=== PATIENT | male | born 1945 | race Caucasian/White ===

== ENCOUNTER 2019-07-01 19:08 | Inpatient (IN) | payer OTHER ==
[2019-07-01] VITALS (12 sets, daily range): BP systolic 81–165; BP diastolic 47–109; BMI 32.9
[~2019-07-01] VITALS: Ht 172.7 cm; Wt 100.6 kg
[~2019-07-01 19:08] MED LIST: ALBUTEROL SULF8.5 GM; BAYER ASPIRIN325 MG PO; COMBIVENT RESPIM4 GM INH; COREG6.25 MG; FUROSEMIDE40 MG; GABAPENTIN300 MG PO; GLUCOPHAGE500 MG PO; K-DUR20 MEQ PO; LISINOPRIL40 MG PO; PLAVIX75 MG PO; SYMBICORT 16010.2 GM INH; ZOCOR80 MG PO; ZYLOPRIM300 MG PO
[2019-07-01 19:24] LABS: BASOPHILS 0.2 % (0-2); EOSINOPHILS 1.2 % (0-7); HEMATOCRIT 41.3 % (42.0-54.0); HEMOGLOBIN 12.6 g/dL (13.5-17.5); IMMATURE GRANULOCYTES 1.2 % (0-5); LYMPHOCYTES 13.4 % (15-50); MCH 30.7 pg (26.0-34.0); MCHC 30.5 g/dL (31.0-37.0); MCV 100.5 fL (80.0-100.0); MEAN PLATELET VOLUME 10.7 fL (7.4-10.4); MONOCYTES 2.5 % (2-11); NEUTROPHILS 81.5 % (40-80); RBC 4.11 10x6/uL (4.20-6.10); RDW 14.3 % (11.5-14.5); WBC 4.8 10x3/uL (4.8-10.8)
[2019-07-01 19:27] LABS: PLATELET COUNT 200 10x3/uL (130-400)
[2019-07-01 19:32] LABS: INR 1.23 (0.85-1.17); PROTIME 15.4 SECONDS (11.6-15.0)
[2019-07-01 19:35] LABS: D-DIMER-QUANTITATIVE 2.63 ug/mLFEU (0.20-0.54)
[2019-07-01 19:56] LABS: ALBUMIN 3.4 g/dL (3.4-5.0); BILIRUBIN - TOTAL 0.51 mg/dL (0.2-1.3); CALCIUM 8.7 mg/dL (8.5-10.1); CARBON DIOXIDE 20.4 mmol/L (21.0-32.0); CREATININE - SERUM 2.4 mg/dL (0.6-1.3); MAGNESIUM - SERUM 2.3 mg/dL (1.8-2.4); PROTEIN - SERUM 8.3 g/dL (6.4-8.2); THYROID STIMULATING HORMONE 3.15 uIU/mL (0.36-3.74)
[2019-07-01 19:57] LABS: ANION GAP 20.4 mmol/L (8-16); TROPONIN-I 0.182 ng/mL (0.000-0.060)
[2019-07-01 19:58] LABS: POTASSIUM - SERUM 6.8 mmol/L (3.5-5.1)
[2019-07-01 21:02] LABS: BACTERIA MODERATE /hpf (NEGATIVE); BILIRUBIN NEGATIVE (NEGATIVE); GLUCOSE NEGATIVE (NEGATIVE); KETONE NEGATIVE (NEGATIVE); NITRITE NEGATIVE (NEGATIVE); UROBILINOGEN NORMAL (NORMAL); WHITE CELLS - URINE 0-5 /hpf (NEGATIVE)
[2019-07-01 21:07] LABS: UDS - AMPHET NEGATIVE QUAL (NEGATIVE); UDS - BARB NEGATIVE QUAL (NEGATIVE); UDS - BENZO NEGATIVE QUAL (NEGATIVE); UDS - COCAINE NEGATIVE QUAL (NEGATIVE); UDS - OPIATE NEGATIVE QUAL (NEGATIVE); UDS - PCP NEGATIVE QUAL (NEGATIVE); UDS - THC NEGATIVE QUAL (NEGATIVE)
--- NOTE | 2019-07-01 21:30 | NUR ---
PT STATES HE FINISHED HIS LAST DOSE OF PLAVIX THIS MORNING.
--- NOTE | 2019-07-01 21:37 | NUR ---
IV INFUSION TIMES: LEVOPHED STARTED AT 1913 CONTINUED TO ICU AT 7MCG/MIN. ZOSYN 4.5G STARTED AT 1957 FINISHED INFUSING AT 2027. DOBUTREX STARTED AT 2032 CONTINUED TO ICU AT 2.5MCG/KG/MIN. VACOMYCIN 1G STARTED AT 2042 CONTINUED TO ICU AT 1G/HR. CALCIUM GLUCONATE 1G STARTED AT 2111 CONTINUED TO ICU AT 1G/HR.
[2019-07-01] MEDS ORDERED: ALBUTEROL SULF8.5 GM INH (23:11)
[2019-07-01 23:31] LABS: % SATURATION 20 % (15-55); IRON 59 ug/dl (35-150); TOTAL IRON BIND CAPACITY 294 ug/dl (260-445); UNSAT IRON BIND CAPACITY 235 ug/dl (150-375)
[2019-07-01 23:59] LABS: TROPONIN-I 27.905 ng/mL (0.000-0.060)
[2019-07-02] VITALS (24 sets, daily range): BP systolic 97–158; BP diastolic 51–106; Ht 172.7 cm; Wt 100.6 kg
[2019-07-02 03:54] LABS: BASOPHILS 0 % (0-2); EOSINOPHILS 0.2 % (0-7); HEMATOCRIT 37.3 % (42.0-54.0); HEMOGLOBIN 11.3 g/dL (13.5-17.5); IMMATURE GRANULOCYTES 0.4 % (0-5); LYMPHOCYTES 10.5 % (15-50); MCHC 30.3 g/dL (31.0-37.0); MCV 98.9 fL (80.0-100.0); MEAN PLATELET VOLUME 10.6 fL (7.4-10.4); MONOCYTES 10.9 % (2-11); RBC 3.77 10x6/uL (4.20-6.10); RDW 14.3 % (11.5-14.5); WBC 5.5 10x3/uL (4.8-10.8)
[2019-07-02 04:05] LABS: PLATELET COUNT 155 10x3/uL (130-400)
[2019-07-02 04:13] LABS: ALBUMIN 3.3 g/dL (3.4-5.0); BILIRUBIN - TOTAL 0.64 mg/dL (0.2-1.3); CALCIUM 8.6 mg/dL (8.5-10.1); CREATININE - SERUM 2.1 mg/dL (0.6-1.3); PHOSPHOROUS 4.8 mg/dL (2.5-4.9); PROTEIN - SERUM 7.7 g/dL (6.4-8.2)
--- NOTE | 2019-07-02 05:18 | NUR ---
215407/01/19-PATIENT ARRIVED FROM ER VIA STRECTHER. LEVOPHED AT 7MCG AND DUBUTAMINE AT 2.5. ONCE TRANSFERED TO ICU BED PATIENT DESAT AND OXYGEN WAS INCREASED TO 7L HIGH FLOW NC. ONCE PT WAS SETTLED O2 SAT REMAINED AT 98-100%, TOOK OXYGEN DOWN TO 4 L NC. MODERATE LIQUID BM NOTED. A/O X 4. 2206- PT VOMIT X 1. STARTED TO DECREASE LEVOPHED. 2225- DR. AMAYA HERE AT BEDSIDE. NEW ORDERS FOR IVF. LARGE LIQUID BM NOTED. COMPLETED CHG BATH AND LINEN CHANGE COMPLETED 2307-LEVOPHED OFF 2347- DUBUTAMINE OFF 0100-LARGE BM NOTED. STOOL SAMPLED SENT OFF. 2606-[id number] COMPLETED. 0500- EYES CLOSED, EASILY ARROUSED. DENIES ANY NEEDS.
--- NOTE | 2019-07-02 07:30 | NUR ---
REPORT RECEIVED. PT ALERT AND ORIENTED. ON O2 AT 4L. PT HAS A LONG. TO HAVE A CT THIS MORNING AND TO HAVE AN ECHO DONE. PT HAS IVS TO LEFT HAND AND RIGHT WRIST. NS INFUSING AT 75ML/HR. PT GETS BLOOD SUGARS CHECKED Q4H. VSS. WILL CONTINUE TO MONITOR.
--- NOTE | 2019-07-02 08:45 | NUR ---
ECHO BEING DONE.
--- NOTE | 2019-07-02 09:46 | NUR ---
SPOKE WITH DR AMAYA REGARDING PT'S KIDNEY FUNCTION AND CONTRAST FOR THE CT. HE SAID TO GO ON WITH ORAL CONTRAST, NOT TO WORRY ABOUT IV CONTRAST TODAY. CALLED ESHA IN [place] AND UPDATED.
--- NOTE | 2019-07-02 10:10 | NUR ---
PT BEING TAKEN TO CT SCAN AT THIS TIME.
--- NOTE | 2019-07-02 12:18 | NUR ---
CLEAR LIQUID DIET LUNCH GIVEN TO PT.
--- NOTE | 2019-07-02 15:00 | NUR ---
PT RESTING QUIETLY. VSS. WILL CONTINUE TO MONITOR.
--- NOTE | 2019-07-02 17:47 | NUR ---
PT ATE 100% OF CLEAR LIQUID DIET DINNER. VSS. NO COMPLAINTS OR NEEDS AT THIS TIME. WILL CONTINUE TO MONITOR.
--- NOTE | 2019-07-02 19:00 | NUR ---
PT SITTING UP IN BED. HE IS ALERT AND ORIENTED X 3. HE THOUGHT HE WAS AT A HOSPITAL IN [place]. INFORMED HIM HE WAS AT [facility]. HE DENIES PAIN OR NEEDS AT THIS TIME. BED IS LOW AND CALL LIGHT IS WITHIN REACH.
--- NOTE | 2019-07-02 20:00 | NUR ---
PT ASKING FOR A TYLENOL. HE IS HAVING PAIN 3/10 TO THIS LEFT SIDE. HE DESCRIBES IT A SHARP INTERMITTENT PAIN. VITALS STABLE. CALL LIGHT IS WITHIN REACH.
--- NOTE | 2019-07-02 21:00 | NUR ---
PT RESTING WITH EYES CLOSED. RESPIRATIONS EVEN AND UNLABORED. VS STABLE. CALL LIGHT WITHIN REACH.
--- NOTE | 2019-07-02 21:19 | MORECARE ---
CASE MANAGEMENT DISCHARGE SUMMARY PATIENT: PAOLA MCKEON UNIT: [id number] ADM DATE: 07/01/19 AGE: 74 : 44 SEX: M ROOM/BED: D.2305 AUTHOR: EDGARDO AVILA PHYSICIAN: REFERRING PHYSICIAN: REEMA AMAYA MD DATE OF SERVICE: 07/02/19 Discharge Plan Patient Name: PAOLA MCKEON Facility: [facility]:[place] : 1945 Planned Disposition: Home Anticipated Discharge Date: Discharge Date: Expected LOS: Initial Reviewer: [email or web address] Initial Review Date: 07/01/2019 Generated: 07/02/19 10:18 pm Comments DCP- Discharge Planning Updated by [email or web address]: Joan Camacho on 07/02/19 8:[address] Patient Name: PAOLA MCKEON Admission Status: ER Accout number: [id number] Admission Date: 07-01-2019 : 1945 Admission Diagnosis: Attending: REEMA AMAYA Current LOS: 1 Anticipated DC Date: Planned Disposition: Primary Insurance: [employer] Discharge Planning Comments: CM met with patient at bedside after explaining CM role and obtaining verbal consent. Patient lives at home with his where he is independent with his care and plans to return there upon discharge. Patient feels this would be a safe discharge. CM discussed availability / needs of home health and medical equipment. Patient states that he has a walker, nebulizer and home 02. Patient denies any discharge needs at this time. CM asked patient [facility]. Patient stated that he would like to stay here and [facility]. Patient states he will have his family drive him home upon discharge. CM will continue to follow and assist as needed with discharge planning / needs. Creel Clerk: Joan Camacho Patient Name: PAOLA MCKEON Page [phone] at 2119 All edits/amendments must be made on the electronic document DICTATION DATE: 07/02/192117 SUPERVISOR YARD: ANIKA 07/02/192117 RPT#: [id number] DC DATE: STATUS: ADM IN [facility] [address] [place] [address] END OF REPORT
--- NOTE | 2019-07-02 21:26 | MORECARE ---
CASE MANAGEMENT DISCHARGE SUMMARY PATIENT: PAOLA MCKEON UNIT: [id number] ADM DATE: 07/01/19 AGE: 74 : 44 SEX: M ROOM/BED: D.2305 AUTHOR: MARGARITA,DOC PHYSICIAN: REFERRING PHYSICIAN: REEMA AMAYA MD DATE OF SERVICE: 07/02/19 Discharge Plan Patient Name: PAOLA MCKEON Facility: [facility]:[place] : 1945 Planned Disposition: Home Anticipated Discharge Date: Discharge Date: Expected LOS: Initial Reviewer: [email or web address] Initial Review Date: 07/01/2019 Generated: 07/02/19 10:25 pm Comments DCP- Discharge Planning Updated by [email or web address]: Joan Camacho on 07/02/19 8:[address] Patient Name: PAOLA MCKEON Admission Status: ER Accout number: [id number] Admission Date: 07-01-2019 : 1945 Admission Diagnosis: Attending: REEMA AMAYA Current LOS: 1 Anticipated DC Date: Planned Disposition: Primary Insurance: [employer] Discharge Planning Comments: CM met with patient at bedside after explaining CM role and obtaining verbal consent. Patient lives at home with his where he is independent with his care and plans to return there upon discharge. Patient feels this would be a safe discharge. CM discussed availability / needs of home health and medical equipment. Patient states that he has a walker, nebulizer and home 02. Patient denies any discharge needs at this time. CM asked patient if he wants to transfer to [place] if bed available. Patient stated that he would like to stay here and [facility] pay. Patient states he will have his family drive him home upon discharge. CM will continue to follow and assist as needed with discharge planning / needs. Food Chemist: Joan Camacho DCPIA - Discharge Planning Initial Assessment Updated by [email or web address]: Joan Camacho on 07/02/19 9:19 pm * Is the patient Alert and Oriented? Yes * How many steps to enter\exit or inside your home? * PCP Mei Cheung - walk-in clinic * [facility] * Preadmission Environment Home with Family * ADLs Independent * Other Equipment WALKER, HOME AND PORTABLE 02, NEBULIZER * List name and contact numbers for known caregivers / representatives who currently or will assist patient after discharge: - [phone] DAI / MAYCO MCKEON -SON & dnl [phone], * Verbal permission to speak to the caregivers and representatives has been obtained from the patient. Yes * Community resources currently utilized None * Additional services required to return to the preadmission environment? No * Can the patient safely return to the preadmission environment? Yes * Has this patient been hospitalized within the prior 30 days at any hospital? No Last DP export: 07/02/19 8:19 pm Patient Name: PAOLA MCKEON Page [phone] at 2126 All edits/amendments must be made on the electronic document DICTATION DATE: 07/02/192124 JOB TRAINING SPECIALIST: ANIKA 07/02/192124 RPT#: [id number] DC DATE: STATUS: ADM IN [facility] [address] [place] [address] END OF REPORT
--- NOTE | 2019-07-02 22:00 | NUR ---
PT SITTING UP IN BED, WATCHING TV. HE REPORTS THAT THE TYLENOL HELPED AND THAT HE IS NOT IN PAIN AT THIS TIME. GOT HIM SOME FRESH WATER AND PERFORMED LONG CARE. HE DENIES FURTHER NEEDS. BED IS LOW AND CALL LIGHT WITHIN REACH.
--- NOTE | 2019-07-02 23:58 | NUR ---
PT AWAKE, ALERT AND ORIENTED. HE REPORTS PAIN IS AT A TOLERABLE LEVEL. VSS. BED LOW AND CALL LIGHT WITHIN REACH.
[2019-07-03] VITALS (11 sets, daily range): BP systolic 126–160; BP diastolic 65–106
[2019-07-03 03:55] LABS: BASOPHILS 0.5 % (0-2); EOSINOPHILS 1.6 % (0-7); HEMATOCRIT 36.7 % (42.0-54.0); HEMOGLOBIN 11.3 g/dL (13.5-17.5); IMMATURE GRANULOCYTES 0.3 % (0-5); LYMPHOCYTES 20.9 % (15-50); MCH 30.1 pg (26.0-34.0); MCHC 30.8 g/dL (31.0-37.0); MCV 97.9 fL (80.0-100.0); MONOCYTES 9.3 % (2-11); NEUTROPHILS 67.4 % (40-80); PLATELET COUNT 135 10x3/uL (130-400); RBC 3.75 10x6/uL (4.20-6.10); RDW 14.3 % (11.5-14.5)
--- NOTE | 2019-07-03 03:58 | NUR ---
PT C/O FEELING HOT, ANXIOUS AND NOT ABLE TO SLEEP. GOT HIM A FAN SET UP ON HIS BEDSIDE TABLE. PT VISIBLY DIAPHORETIC AND EVERYTIME I WALK BY HIS ROOM HE IS LOOKING INTO THE GUTIERREZ. HE STATES HE IS ANXIOUS AND CANT SLEEP. ATIVAN GIVEN. TEMP IS WNL 98.4 ORALLY. BED LOW AND CALL LIGHT WITHIN REACH. HE DENIES FURTHER NEEDS AT THIS TIME.
[2019-07-03 04:07] LABS: WBC 3.9 10x3/uL (4.8-10.8)
[2019-07-03 04:26] LABS: BILIRUBIN - TOTAL 0.58 mg/dL (0.2-1.3); CALCIUM 8.7 mg/dL (8.5-10.1); CARBON DIOXIDE 25.2 mmol/L (21.0-32.0); CREATININE - SERUM 1.6 mg/dL (0.6-1.3); PROTEIN - SERUM 7.4 g/dL (6.4-8.2)
[2019-07-03 04:29] LABS: ANION GAP 10.5 mmol/L (8-16); PHOSPHOROUS 3.1 mg/dL (2.5-4.9); POTASSIUM - SERUM 4.7 mmol/L (3.5-5.1)
--- NOTE | 2019-07-03 07:20 | NUR ---
REPORT RECEIVED. PT ALERT. UNABLE TO SLEEP DURING THE NIGHT. IS ON O2 AT 3L. BLOOD SUGAR Q4H. PT HAS IV TO RIGHT WRIST AND LEFT HAND. HE HAS A LONG. ON A CLEAR LIQUID DIET.
--- NOTE | 2019-07-03 08:30 | NUR ---
FAMILY CALLED AND UPDATED. PT EATING BREAKFAST. MEDICATIONS GIVEN. PT REPOSITIONED. NO OTHER NEEDS AT THIS TIME.
--- NOTE | 2019-07-03 10:24 | NUR ---
DR AMAYA ROUNDED AND STATED PT CAN TRANSFER OUT OF THE UNIT.
--- NOTE | 2019-07-03 12:32 | NUR ---
PT IS VERY CONFUSED. ALERT TO SELF AND PLACE.
--- NOTE | 2019-07-03 14:52 | NUR ---
REPORT CALLED TO DEBORAH ON MED 2. PT JUST HAD BM TO BSC. CLEANED UP. ASSISTED BACK TO BED. WILL TRANSFER VIA BED.
[2019-07-04] VITALS (9 sets, daily range): BP systolic 132–178; BP diastolic 55–141
[2019-07-04 06:37] LABS: BASOPHILS 0.1 % (0-2); EOSINOPHILS 0.4 % (0-7); HEMATOCRIT 41.8 % (42.0-54.0); IMMATURE GRANULOCYTES 0.3 % (0-5); LYMPHOCYTES 12.4 % (15-50); MCH 30.2 pg (26.0-34.0); MCHC 31.1 g/dL (31.0-37.0); MEAN PLATELET VOLUME 10.5 fL (7.4-10.4); MONOCYTES 10.9 % (2-11); NEUTROPHILS 75.9 % (40-80); RBC 4.31 10x6/uL (4.20-6.10); RDW 14.2 % (11.5-14.5)
[2019-07-04 06:43] LABS: PLATELET COUNT 167 10x3/uL (130-400); WBC 6.9 10x3/uL (4.8-10.8)
[2019-07-04 06:51] LABS: ALBUMIN 3.3 g/dL (3.4-5.0); ANION GAP 14.8 mmol/L (8-16); BILIRUBIN - TOTAL 0.87 mg/dL (0.2-1.3); CALCIUM 9.2 mg/dL (8.5-10.1); CARBON DIOXIDE 22.3 mmol/L (21.0-32.0); CREATININE - SERUM 1.3 mg/dL (0.6-1.3); PHOSPHOROUS 2.6 mg/dL (2.5-4.9); POTASSIUM - SERUM 4.1 mmol/L (3.5-5.1); PROTEIN - SERUM 8.1 g/dL (6.4-8.2)
--- NOTE | 2019-07-04 12:33 | NUR ---
Nutrition Follow-up: NPO for MIKAEL today. Pt confused. Wt: 221.4# (07/03); 217# (07/01) Last BM: 07/02 Labs noted: Glu 135, Alb 3.3 Meds noted: Protonix, NS @ 75, vitamin B12, electrolyte protocol -Rec resume diet following procedure when medically feasible. -Monitor wt. -RD following.
--- NOTE | 2019-07-04 17:30 | NUR ---
REC'D VIA BED FROM MED 2 PRIMARY NURSE, AWAKE AND AGITATED, PULLING AT LONG, ATTEMPTING TO PULL IT OUT, KICKING AND HITTING AT NURSES, TRANSFERED TO ICU BED, CONTINUEING TO HIT AND ATTEMPTED TO BITE WELL, B/L SOFT WRIST RESTRAINTS PLACE, CONNECTED TO ICU MONITORS, HYPERTENSIVE AT 170'S, NEW ORDER GIVEN PER DR AMAYA, FOR ATIVAN 2MG Q 15 MIN, WIILL CONTINUE TO MONITOR
--- NOTE | 2019-07-04 19:00 | NUR ---
REPORT RECEVEID FROM THE OFF GOING RN. SEE ASSESSEMENT IN THE PTS FLOW SHEET. VSS AT THIS TIME. CALL LIGHT IN REACH. WILLC ONT POC.
--- NOTE | 2019-07-04 19:00 | NUR ---
REPORT RECEVIED FROM THE OFF GOING RN. SEE ASSESSMENT IN THE PTS FLOW SHEET. PT OBTUNDED AND HAS A GARBLED SPEECH. FC NOTED WITH BLOODY URINE NOTED. CALL LIGHT IN REACH. VSS AT THIS TIME. CALL LIGHT IN REACH. WILL CONT POC.
--- NOTE | 2019-07-04 19:47 | NUR ---
SPOKE WITH DR AMAYA, KEEP PT NPO AND ORDER A BANANA BAG.
--- NOTE | 2019-07-04 21:00 | NUR ---
PT PULSES REMAIN UNCHANGED. GROIN SOFT TO PALPATATION. VSS. WILL CONT POC.
--- NOTE | 2019-07-04 21:00 | NUR ---
PT REMIANS CONFUSED AND RESTLESS. VSS. CALL LIGHT IN REACH. WILLC ONT POC.
[2019-07-05] VITALS (23 sets, daily range): BP systolic 112–161; BP diastolic 58–118
--- NOTE | 2019-07-05 00:02 | NUR ---
SPOKE WITH BRENNEN RIOS ABOUT PERSISTANT TACHYCARDIA. 5MG IV LOPRESSOR NOW.
--- NOTE | 2019-07-05 03:00 | NUR ---
REASSESSMENT COMPLETED. SEE FLOW SHEET.
[2019-07-05 03:57] LABS: BASOPHILS 0.3 % (0-2); HEMATOCRIT 40.5 % (42.0-54.0); HEMOGLOBIN 12.6 g/dL (13.5-17.5); IMMATURE GRANULOCYTES 0.3 % (0-5); LYMPHOCYTES 9.1 % (15-50); MCH 30.2 pg (26.0-34.0); MCHC 31.1 g/dL (31.0-37.0); MCV 97.1 fL (80.0-100.0); MEAN PLATELET VOLUME 11.2 fL (7.4-10.4); MONOCYTES 12.6 % (2-11); NEUTROPHILS 76.7 % (40-80); PLATELET COUNT 137 10x3/uL (130-400); RBC 4.17 10x6/uL (4.20-6.10); RDW 14.3 % (11.5-14.5); WBC 6.7 10x3/uL (4.8-10.8)
--- NOTE | 2019-07-05 04:00 | NUR ---
FULL CHD BED BATH GIVEN. LINENS CHANGED. PT TOLERATED WELL. WILL CONT POC.
[2019-07-05 04:19] LABS: ALBUMIN 3.3 g/dL (3.4-5.0); ANION GAP 13.9 mmol/L (8-16); CREATININE - SERUM 1.1 mg/dL (0.6-1.3); PHOSPHOROUS 2.7 mg/dL (2.5-4.9); POTASSIUM - SERUM 3.9 mmol/L (3.5-5.1)
--- NOTE | 2019-07-05 07:15 | NUR ---
REPORT RECIEVED, SHIFT ASSESSMENT COMPLETE, PT IS LETHARGIC LAYING IN BED, ON 5L HFNC WITH 97% O2 SAT. ALL PPP, VSS, CALL LIGHT IN REACH
--- NOTE | 2019-07-05 09:20 | NUR ---
UPDATE GIVEN TO FAMILY OVER PHONE, PASSWORD GIVEN
--- NOTE | 2019-07-05 11:20 | NUR ---
REASSESSMENT COMPLETE, NO CHANGES NOTED, VSS, CALL LIGHT IN REACH
--- NOTE | 2019-07-05 13:15 | NUR ---
UPDATE GIVEN TO FAMILY OVER PHONE, PASSWORD GIVEN
--- NOTE | 2019-07-05 15:00 | NUR ---
REASSESSMENT COMPLETE, NO CHANGES NOTED, WILL CON'T TO MONITOR
--- NOTE | 2019-07-05 17:00 | NUR ---
REPOSITIONED FOR COMFORT,
[2019-07-05 18:08] LABS: OVA + PARASITE EXAM Final report (())
--- NOTE | 2019-07-05 19:00 | NUR ---
REPORT RECEVEID FROM THE OFF GOING RN. SEE MAGALIE IN THE PTS FLOW SHEET. PT LYING IN BED AND COOPERATIVE. PT STILL CONFUSED AND HAS A GARBLED SPEACH. VSS. CALL LIGHT IN REACH. WILLC ONT POC.
--- NOTE | 2019-07-05 19:14 | MORECARE ---
CASE MANAGEMENT DISCHARGE SUMMARY PATIENT: PAOLA MCKEON UNIT: [id number] ADM DATE: 07/01/19 AGE: 74 : 44 SEX: M ROOM/BED: D.2303 AUTHOR: MARGARITADOC PHYSICIAN: REFERRING PHYSICIAN: REEMA AMAYA MD DATE OF SERVICE: 07/05/19 Discharge Plan Patient Name: PAOLA MCKEON Facility: [facility]:[place] : 1945 Planned Disposition: Home Anticipated Discharge Date: Discharge Date: Expected LOS: Initial Reviewer: [email or web address] Initial Review Date: 07/01/2019 Generated: 07/05/19 8:13 pm Comments DCP- Discharge Planning Updated by [email or web address]: Joan Camacho on 07/05/19 6:[address] CM RECIEVED A CALL FROM DK DUMONT FROM [place] [phone]. CM GAVE VERBAL UPDATE ON PATIENT. DK STATED TO CALL IF PATIENT NEEDS ANYTHING. DCP- Discharge Planning Updated by [email or web address]: Joan Camacho on 07/02/19 8:[address] Patient Name: PAOLA MCKEON Admission Status: ER Accout number: [id number] Admission Date: 07-01-2019 : 1945 Admission Diagnosis: Attending: REEMA AMAYA Current LOS: 1 Anticipated DC Date: Planned Disposition: Primary Insurance: [employer] Discharge Planning Comments: CM met with patient at bedside after explaining CM role and obtaining verbal consent. Patient lives at home with his where he is independent with his care and plans to return there upon discharge. Patient feels this would be a safe discharge. CM discussed availability / needs of home health and medical equipment. Patient states that he has a walker, nebulizer and home 02. Patient denies any discharge needs at this time. CM asked patient [facility]. Patient stated that he would like to stay here and [facility] pay. Patient states he will have his family drive him home upon discharge. CM will continue to follow and assist as needed with discharge planning / needs. Terminal Carman: Joan Camacho DCPIA - Discharge Planning Initial Assessment Updated by [email or web address]: Joan Camacho on 07/02/19 9:19 pm * Is the patient Alert and Oriented? Yes * How many steps to enter\exit or inside your home? * PCP Mei Cheung - walk-in clinic * Pharmacy [facility] * Preadmission Environment Home with Family * ADLs Independent * Other Equipment WALKER, HOME AND PORTABLE 02, NEBULIZER * List name and contact numbers for known caregivers / representatives who currently or will assist patient after discharge: - [phone] DAI / MAYCO MCKEON -SON & dnl [phone], * Verbal permission to speak to the caregivers and representatives has been obtained from the patient. Yes * Community resources currently utilized None * Additional services required to return to the preadmission environment? No * Can the patient safely return to the preadmission environment? Yes * Has this patient been hospitalized within the prior 30 days at any hospital? No Last DP export: 07/02/19 8:26 pm Patient Name: PAOLA MCKEON Page [phone] at 1914 All edits/amendments must be made on the electronic document DICTATION DATE: 07/05/191913 SKI PATROL: ANIKA 07/05/191913 RPT#: [id number] DC DATE: STATUS: ADM IN [facility] [address] [place] [address] END OF REPORT
--- NOTE | 2019-07-05 21:24 | NUR ---
FAMILY MEMBER CALLED AND PROVIDED A PASSWORD. UPDATE GIVEN.
--- NOTE | 2019-07-05 21:25 | NUR ---
PT AWAKE AND ALERT BUT STILL CONFUSED. PT REQUESTED WATER. WATER WAS GIVEN AND PT TOLERATED WELL WITH NO DYSPAGIA NOTED. PO MEDS GIVEN WITH NO ISSUES. CALL LIGHT IN REACH. WILL CONT POC.
--- NOTE | 2019-07-05 23:00 | NUR ---
PT RESTING. VSS. CALL LIGHT IN REACH. WILL CONT POC.
[2019-07-06] VITALS (10 sets, daily range): BP systolic 70–164; BP diastolic 46–103
--- NOTE | 2019-07-06 03:00 | NUR ---
REASSEMENT COMPLETED. VSS. CALL LIGHT IN REACH. WILL CONT POC.
[2019-07-06 05:12] LABS: BASOPHILS 0.5 % (0-2); EOSINOPHILS 2.7 % (0-7); HEMATOCRIT 38.2 % (42.0-54.0); HEMOGLOBIN 11.7 g/dL (13.5-17.5); IMMATURE GRANULOCYTES 0.2 % (0-5); LYMPHOCYTES 14.9 % (15-50); MCH 30.1 pg (26.0-34.0); MCHC 30.6 g/dL (31.0-37.0); MCV 98.2 fL (80.0-100.0); MEAN PLATELET VOLUME 10.9 fL (7.4-10.4); MONOCYTES 9.2 % (2-11); NEUTROPHILS 72.5 % (40-80); PLATELET COUNT 156 10x3/uL (130-400); RBC 3.89 10x6/uL (4.20-6.10); RDW 14.6 % (11.5-14.5); WBC 5.5 10x3/uL (4.8-10.8)
[2019-07-06 05:50] LABS: ANION GAP 13.4 mmol/L (8-16); BILIRUBIN - TOTAL 0.92 mg/dL (0.2-1.3); CALCIUM 8.7 mg/dL (8.5-10.1); CREATININE - SERUM 1.2 mg/dL (0.6-1.3); PHOSPHOROUS 2.9 mg/dL (2.5-4.9); POTASSIUM - SERUM 4.4 mmol/L (3.5-5.1); PROTEIN - SERUM 7.4 g/dL (6.4-8.2)
--- NOTE | 2019-07-06 07:06 | NUR ---
REPORT RECIEVED, SHIFT ASSESSMENT COMPLETE, PT IS CONFUSED LYING IN BED, ON 5L HFNC WITH 97% O2 SAT. ALL PPP, VSS, CALL LIGHT IN REACH
--- NOTE | 2019-07-06 08:08 | TEE ---
PATIENT:PAOLA MCKEON MEDICAL RECORD: [id number] LOCATION:[facility] AGE OF PATIENT: 74 ADMISSION DATE: 07/01/19 SEX: M REFERRING PHYSICIAN: INTERPRETING PHYSICIAN: ERIN CURTIS MD TRANSESOPHAGEAL ECHOCARDIOGRAM Date: 07/05/19 MIKAEL CHARGE Y INDICATIONS: R/O VEGETATION ON AORTIC VALVE PREMEDICATIONS: PATIENT'S RESPONSE PROCEDURE DOPPLER MEASUREMENTS: LVIT LA PA 67.0 RA LVOT 59.0 RVOT 44.0 Asc. Ao 152 AV Gradient Peak 9.2 AV Mean 5.3 AV Area 0.9 MV Gradient Peak 6.5 MV Mean 2.4 MV Area INTERPRETATION: Doppler: 2-D: COLOR FLOW DOPPLER NORMAL SALINE STUDY: MISCELLANOUS: DIAGNOSIS: PLAN: Rn Relief Charge:3 Dr. Romero Gamemaster: Angela TODD COMMENTS: DATE OF SERVICE: 07/05/2019 PROCEDURE: Transesophageal Note PROCEDURE: After general sedation via TIVA via anesthesia, a transesophageal Omniplane probe was placed in to esophagus and proximal stomach without difficulty. FINDINGS: LVH is present. LV internal dimension is normal. Wall motion is TRANSESOPHAGEAL ECHOCARDIOGRAM REPORT [id number] PAOLA MCKEON normal. EF is greater than or equal to 55%. The aortic valve is well visualized, this is trileaflet, it is sclerotic; however, there is good valve excursion. No significant aortic insufficiency, no vegetation is noted. Left atrium is normal dimensions. Left atrial appendage is well visualized without difficulty. The mitral valve has mitral annular calcifications, good valve excursion, no more than mild MR by color flow imaging. Right-sided chambers appear grossly normal. Moderate TR, no evidence of vegetation on tricuspid valve. IMPRESSION: No evidence of vegetation, all 4 cardiac valves. Left ventricular function is normal. TRANSINT:[id number] Voice Confirmation ID: [id number] DOCUMENT ID: [id number] CC: [id number] DICTATION DATE: 07/05/19 1332 SENIOR INTERNET SALES CONSULTANT: 07/05/19 2236 ADM IN [facility] [address] [place] [address]
--- NOTE | 2019-07-06 10:12 | NUR ---
Nutrition follow-up: Diet: Regular PO intake continues to be poor 2/2 confusion Labs reviewed Wt: 221# Will continue to provide food choices and honor food preferences. RDN following.
--- NOTE | 2019-07-06 11:30 | NUR ---
PT UPTO CHAIR AT THIS TIME WITH PT, TOLERATED WELL
--- NOTE | 2019-07-06 14:59 | NUR ---
REPORT CALLED TO OVIDIO ON MED SURG, PT TRANSFERRERED VIA WHEELCHAIR
--- NOTE | 2019-07-06 15:14 | NUR ---
PATIENT ADMITTED TO ROOM 2216. SITTING IN CHAIR AT BEDSIDE WITH FEET UP. DENIES NEEDS. CALL URRUTIA AND PERSONAL ITEMS IN REACH. WILL CONTINUE TO MONITOR.
--- NOTE | 2019-07-06 16:22 | NUR ---
OT NOTE: PT COMPLETED UE AROM EX TOLERATED. PT COMPLETED FACE HYGIENE WITH SETUP. [phone] THANK YOU,NOLBERTO KEEN
--- NOTE | 2019-07-06 23:18 | NUR ---
RESTING QUEITLY WITH NO DISTRESS NOTED. RESP UNALBORED.o2@ 5L PER NC ON. LONG PATENT AND DRAINING DARK TEA COLORED URINE.SL TO RFA INTACT WITHOUT REDNESS OR EDEMA NOTED. CL IN REACH
--- NOTE | 2019-07-07 02:51 | NUR ---
I have reviewed this patient and I concur with the Shift Assessment completed by the Licensed Practical Nurse today this shift.
[2019-07-07 04:00] VITALS: BP 143/98
--- NOTE | 2019-07-07 07:44 | NUR ---
PT RESTING IN BED WITH EYES OPEN, ON THE PHONE TRYING TO CALL DIFFERENT NUMBERS, I ASKED WHO HE WAS TRYING TO CALL AND TOLD HIM I WOULD HELP HIM, HE STATES HE IS TRYING TO CALL HIS BUT THE NUMBER HE TELLS ME ISNT A REAL PHONE NUMBER, I INFORM HIM OF THIS AND HE JUST LAUGHS. IV LOCATED TO RIGHT CURRENTLY RUNNING MULTIVIT. ON 5L VIA MI. ETHAN PRESENT PUTTING OUT DARK BARBARA URINE. WILL CONT TO MONITOR.
[2019-07-07 09:19] VITALS: BP 140/79
[2019-07-07 12:43] VITALS: BP 110/66
[2019-07-07 17:54] VITALS: BP 129/68
[2019-07-07 20:00] VITALS: BP 105/68
--- NOTE | 2019-07-07 23:46 | NUR ---
REMAINS CONFUSED. HAS PULLED IV OUT. RESITED TO LFA X 1 ATTEMPT PER MILTON STONEWORK TRACER. LINENS CHANGED AND PATIENT POSITIONED UP IN BED. O2 @ 5 L PER NC ON. NO DISTRESS NOTED. CL IN REACH
[2019-07-08] VITALS: BP 109/72
[2019-07-08 04:00] VITALS: BP 127/87
--- NOTE | 2019-07-08 06:18 | NUR ---
I have reviewed this patient and I concur with the Shift Assessment completed by the Licensed Practical Nurse today this shift.
[2019-07-08 06:45] LABS: HEMATOCRIT 37.5 % (42.0-54.0); HEMOGLOBIN 12.1 g/dL (13.5-17.5); MCHC 32.3 g/dL (31.0-37.0); MCV 96.2 fL (80.0-100.0); MEAN PLATELET VOLUME 11.2 fL (7.4-10.4); NEUTROPHILS 77.8 % (40-80); PLATELET COUNT 171 10x3/uL (130-400); RDW 15.1 % (11.5-14.5); WBC 7.5 10x3/uL (4.8-10.8)
[2019-07-08 06:51] LABS: ANION GAP 14.3 mmol/L (8-16); CALCIUM 8.5 mg/dL (8.5-10.1); CARBON DIOXIDE 22.7 mmol/L (21.0-32.0); CREATININE - SERUM 1.8 mg/dL (0.6-1.3)
[2019-07-08 08:00] VITALS: BP 125/86
--- NOTE | 2019-07-08 08:00 | NUR ---
PATIENT ASLEEP. WAKES UP TO VOICE BUT WONT STAY AWAKE. NIGHT NURSE STATED PATIENT WAS UP ALL NIGHT AND DIDNT SLEEP. GAVE ATIVAN AT 1 AM. IV REMOVED BECAUSE IT WOULDNT FLUSH. CATH TIP INTACT. TRIED TO RESTART. UNSUCCESSFUL AT THIS TIME. WILL TRY AGAIN LATER.
[2019-07-08 12:00] VITALS: BP 127/78
[2019-07-08 16:00] VITALS: BP 127/82
--- NOTE | 2019-07-08 18:50 | NUR ---
PATIENT SITTING UP IN BED EATING DINNER AT THIS TIME. IV INTACT. BSCDS PLACED ON PATIENT. CALL LIGHT WITHIN REACH. BA ON.
[2019-07-08 20:00] VITALS: BP 109/68
--- NOTE | 2019-07-08 20:30 | NUR ---
RESTING QUIELTY WITH NO DISTRESS NOTED. O2@ 5L PER NC ON. RESP UNLABORED. CONTINUES TO HAVE CONFUSION NOTED. IV TO RIEGHT WRIST INTACT WITHOUT REDNESS OR EDEMA NOTED. CL IN REACH
[2019-07-09] VITALS (7 sets, daily range): BP systolic 93–128; BP diastolic 49–85
[2019-07-09 05:02] LABS: HEMATOCRIT 36.4 % (42.0-54.0); HEMOGLOBIN 11.7 g/dL (13.5-17.5); LYMPHOCYTES 14.9 % (15-50); MCHC 32.1 g/dL (31.0-37.0); MCV 96.3 fL (80.0-100.0); MEAN PLATELET VOLUME 10.3 fL (7.4-10.4); NEUTROPHILS 74.7 % (40-80); PLATELET COUNT 183 10x3/uL (130-400); RBC 3.78 10x6/uL (4.20-6.10); RDW 15.1 % (11.5-14.5); WBC 7.6 10x3/uL (4.8-10.8)
[2019-07-09 05:05] LABS: ANION GAP 11.8 mmol/L (8-16); CALCIUM 8.3 mg/dL (8.5-10.1); CARBON DIOXIDE 25.8 mmol/L (21.0-32.0); CREATININE - SERUM 1.6 mg/dL (0.6-1.3); POTASSIUM - SERUM 3.6 mmol/L (3.5-5.1)
--- NOTE | 2019-07-09 12:14 | NUR ---
OT NOTE: PT REMAINS VERY CONFUSED. BED MOB WITH MOD/MAX ASSIST. ABLE TO PERFORM EOB SITTING X APPROX 20 MIN WHILE BED BATH GIVEN. PT ABLE TO WASH FACE AND HANDS WITH FREQ CUES TO STAY ON TASK; MAX ASSIST WITH REMAINDER OF BATHING; MAX ASSIST TO RAPHAEL SOCKS; MOD ASSIST TO RAPHAEL GOWN; MOD ASSIST X 2 FOR SIT TO STAND; ATTEMPTED TO AMB OUTSIDE INTO HALLWAY, HOWEVER, PT BECAME VERY FATIGUED AND ATTEMPTING TO SIT WITHOUT ANYTHING BEHIND HIM. PT WITH SIGNIFICANT DIFFICULTY USING WALKER TO GET BACK TO BED.. REQUIRED MAX ASSIST X 2 TO ASSIST PT TO EOB. MAX ASSIST WITH SIT TO SUPINE; MAX ASSIST TO REPOSITION IN BED. PT ABLE TO REACH FOR CUP AND TAKE APPROX 4 SMALL SIPS. WILL REQUIRE EXT IP REHAB IN ORDER TO RETURN TO PLOF. TOMÁS GONZALEZ, OTR/L [id number]
--- NOTE | 2019-07-09 12:26 | NUR ---
SPORATIC BRUISING NOTED ON ARMS. SKIN INTACT. TURNS SELF IN BED. NO CHRONIC SKIN ISSUES NOTED. WOUND CARE WILL MONITOR NEEDED.
--- NOTE | 2019-07-09 13:46 | NUR ---
Nutrition follow-up: Pt eating breakfast at time of RDN visit; DRAWING OPERATOR feeding pt. PO intake ~25-50% of meals. Some confusion noted. Wt: 221# Diet: Regular RDN following.
--- NOTE | 2019-07-09 15:53 | NUR ---
PATIENT REFUSED TO WEAR TELEMETRY. WONT KEEP ON. IV INTACT AT THIS TIME. CALL LIGHT WITHIN REACH.
--- NOTE | 2019-07-09 16:23 | NUR ---
OT NOTE: PT IS CONFUSED. PT REQUIRED CUES TO LEAVE [address] PT COMPLETED SUPINE TO SIT WITH MAX A. PT COMPLETED SIT TO SUPINE WITH MIN/MOD A FOR LE MANAGEMENT. PT COMPLETED HAIR GROOMING WITH MIN A AT EOB. PT REQUIRED CUES TO MAINTAIN STATIC SITTING BALANCE. [id number] THANK YOU,NOLBERTO KEEN
--- NOTE | 2019-07-09 18:31 | NUR ---
PATIENT IN BED WITH IV INTACT. LONG INTACT. WILL NOT LEAVE STAT LOCK OR TAPE ON TO KEEP CATHETER FROM PULLING. O2 IS ON. PATIENT WAS MORE AWAKE TODAY AND LESS CONFUSED. ABLE TO EAT MORE. NO COMPLAINTS OR SIGNS OF DISTRESS. CALL LIGHT WITHIN REACH.
--- NOTE | 2019-07-10 00:03 | NUR ---
REC'D.CHGE OF SHIFT WALKING ROUNDS IN BED TAKEN ALL CLOTHES OF.REDRESSED. CONFUSED AND DISORIENTED TO PLACE,TIME.SITUATION. BED ARMED.02/3L HIGH FLOW NO RESPIRATORY DIFFICULTY OBSERVED. HOB ELEVATED. WILL CONTINUE TO MONITOR FOR ANY CHGES IN STATUS AND FOLLOW CURRENT PLAN OF CARE
--- NOTE | 2019-07-10 00:04 | NUR ---
I have reviewed this patient and I concur with the Shift Assessment completed by the Licensed Practical Nurse today this shift.
[2019-07-10 04:00] VITALS: BP 100/73
[2019-07-10 04:45] LABS: HEMATOCRIT 40.6 % (42.0-54.0); HEMOGLOBIN 12.8 g/dL (13.5-17.5); LYMPHOCYTES 10.6 % (15-50); MCH 30.4 pg (26.0-34.0); MCHC 31.5 g/dL (31.0-37.0); MCV 96.4 fL (80.0-100.0); MEAN PLATELET VOLUME 11.1 fL (7.4-10.4); PLATELET COUNT 199 10x3/uL (130-400); RBC 4.21 10x6/uL (4.20-6.10); RDW 16.4 % (11.5-14.5); WBC 8.9 10x3/uL (4.8-10.8)
[2019-07-10 05:04] LABS: ANION GAP 13.2 mmol/L (8-16); CALCIUM 8.7 mg/dL (8.5-10.1)
[2019-07-10 05:12] LABS: POTASSIUM - SERUM 4.2 mmol/L (3.5-5.1)
--- NOTE | 2019-07-10 08:48 | NUR ---
TELEMRTY APPLIED SHOWING CAF 96 PER SANDER OPERATOR
[2019-07-10 09:03] VITALS: BP 113/82
[2019-07-10 12:48] VITALS: BP 105/61
--- NOTE | 2019-07-10 14:54 | NUR ---
OT NOTE: PT VERY CONFUSED. VERY LETHARGIC TODAY. ATTEMPTED EOB HOWEVER, PT UNABLE TO STAY AWAKE. REPOSITIONED WITH MAX ASSIST X 2. TOMÁS GONZALEZ,OTR/L [phone]
--- NOTE | 2019-07-10 15:53 | NUR ---
OT NOTE: PT COMPLETED SIDE ROLLING WITH MOD A. PT COMPLETED POSITIONING WITH MIN A. PT COMPLETED ORAL HYGIENE WITH MOD A. [phone] THANK YOU,NOLBERTO KEEN
[2019-07-10 17:43] VITALS: BP 119/69
[2019-07-11] VITALS: BP 127/81
[2019-07-11 04:00] VITALS: BP 125/50
[2019-07-11 05:09] LABS: ANION GAP 12.6 mmol/L (8-16); CALCIUM 8.8 mg/dL (8.5-10.1); CARBON DIOXIDE 26.7 mmol/L (21.0-32.0); CREATININE - SERUM 2.1 mg/dL (0.6-1.3); POTASSIUM - SERUM 4.3 mmol/L (3.5-5.1)
[2019-07-11 05:17] LABS: BASOPHILS 0.3 % (0-2); HEMATOCRIT 39.6 % (42.0-54.0); HEMOGLOBIN 12.3 g/dL (13.5-17.5); IMMATURE GRANULOCYTES 0.4 % (0-5); LYMPHOCYTES 12.3 % (15-50); MCH 30.9 pg (26.0-34.0); MCHC 31.1 g/dL (31.0-37.0); MEAN PLATELET VOLUME 10.9 fL (7.4-10.4); MONOCYTES 6.7 % (2-11); NEUTROPHILS 79.3 % (40-80); PLATELET COUNT 218 10x3/uL (130-400); RBC 3.98 10x6/uL (4.20-6.10); WBC 7.9 10x3/uL (4.8-10.8)
[2019-07-11 05:19] LABS: MCV 99.5 fL (80.0-100.0)
--- NOTE | 2019-07-11 06:54 | NUR ---
I have reviewed this patient and I concur with the Shift Assessment completed by the Licensed Practical Nurse today this shift.
[2019-07-11 09:53] VITALS: BP 120/58
--- NOTE | 2019-07-11 10:40 | NUR ---
PT CONFUSED, REMOVING CPAP, IV INFUSING PER RIGHT WRIST, TAKES PO MEDS CRUSHED IN APPLESAUCE, CONT TO MONITOR SUGARS AND SATS
[2019-07-11 13:21] VITALS: BP 113/59
--- NOTE | 2019-07-11 16:37 | MORECARE ---
CASE MANAGEMENT DISCHARGE SUMMARY PATIENT: PAOLA MCKEON UNIT: [id number] ADM DATE: 07/01/19 AGE: 74 : 43 SEX: M ROOM/BED: D.2216 AUTHOR: MARGARITA,DOC PHYSICIAN: REFERRING PHYSICIAN: REEMA AMAYA MD DATE OF SERVICE: 07/11/19 Discharge Plan Patient Name: PAOLA MCKEON Facility: [facility]:[place] : 1945 Planned Disposition: Home Anticipated Discharge Date: Discharge Date: Expected LOS: Initial Reviewer: [email or web address] Initial Review Date: 07/01/2019 Generated: 07/11/19 5:37 pm Comments DCP- Discharge Planning Updated by [email or web address]: Negra Amanda on 07/11/19 3:[address] SPOKE WITH AND DAUGHTER IN LAW ABOUT CARE AND WISHES ASKED BY DR MARTINEZ THEY STATED THAT HE USES O2 ALL THE TIME @2L. HE IS NOT A CONFUSED PERSON AND IS INDEPENDENT WITH HIS CARE AT HOME. THIS IS NOT HIS NORMAL. I HAVE RECEIVED PERMISSION FROM ADMINISTRATION FOR THE SON AND TO COME SEE THE PATIENT. TO GET A BETTER IDEA OF PLAN OF CARE. CM TO FOLLOW AND ASSIST DCP- Discharge Planning Updated by [id number]: Joan Camacho on 07/05/19 6:[address] CM RECIEVED A CALL FROM DK DUMONT FROM [place] [phone]. CM GAVE VERBAL UPDATE ON PATIENT. DK STATED TO CALL IF PATIENT NEEDS ANYTHING. DCP- Discharge Planning Updated by [id number]: Joan Camacho on 07/02/19 8:[address] Patient Name: PAOLA MCKEON Admission Status: ER Accout number: [id number] Admission Date: 07-01-2019 : 1945 Admission Diagnosis: Attending: REEMA AMAYA Current LOS: 1 Anticipated DC Date: Planned Disposition: Primary Insurance: [employer] Discharge Planning Comments: CM met with patient at bedside after explaining CM role and obtaining verbal consent. Patient lives at home with his where he is independent with his care and plans to return there upon discharge. Patient feels this would be a safe discharge. CM discussed availability / needs of home health and medical equipment. Patient states that he has a walker, nebulizer and home 02. Patient denies any discharge needs at this time. CM asked [facility]. Patient stated that he would [place] [facility] [place]. Patient states he will have his family drive him home upon discharge. CM will continue to follow and assist as needed with discharge planning / needs. News Content Specialist: Joan Furr DCPIA - Discharge Planning Initial Assessment Updated by [email or web address]: Joan Camacho on 07/02/19 9:19 pm * Is the patient Alert and Oriented? Yes * How many steps to enter\exit or inside your home? * PCP Mei Cheung - walk-in clinic * [facility] * Preadmission Environment Home with Family * ADLs Independent * Other Equipment WALKER, HOME AND PORTABLE 02, NEBULIZER * List name and contact numbers for known caregivers / representatives who currently or will assist patient after discharge: - [phone] DAI / MAYCO MCKEON -SON & dnl [phone], * Verbal permission to speak to the caregivers and representatives has been obtained from the patient. Yes * Community resources currently utilized None * Additional services required to return to the preadmission environment? No * Can the patient safely return to the preadmission environment? Yes * Has this patient been hospitalized within the prior 30 days at any hospital? No Last DP export: 07/05/19 6:14 pm Patient Name: PAOLA MCKEON Page [id number] at 1637 All edits/amendments must be made on the electronic document DICTATION DATE: 07/11/19 1637 CARBON FURNACE OPERATOR: ANIKA 07/11/19 1637 RPT#: [id number] DC DATE: STATUS: ADM IN [facility] [address] [place] [address] END OF REPORT
--- NOTE | 2019-07-11 17:30 | NUR ---
FAMILY HERE TO SEE PT," STATE THAT PT WAS GOING ON HOSPICE"
--- NOTE | 2019-07-11 20:28 | NUR ---
1945) REC'D CHGE OF SHIFT WALKING ROUNDS IN BED GOWN 02 OFF.PULLED UP IN BED GOWN 02 REAPPLIED 3L HIGH FLOW.HOB ELEVATED.REMAINS CONFUSED AND DISORIENTED TO TIME PLACE AND SITUATION.2004) RESPIRATORY THERAPY CONCEPCION ENTERED ROOM HAD PULLED 02 OFF FACE DUSKY IN COLOR NON RESPONSIVE.AIRWAY OPENED BAGGING CODE BLUE CALLED.LUKAS WILLIAM[facility] HERE NOTIFIED DR BHATIA.SON CALLED EXPLAINED NO CODE STATUS FULL CODE PROCEDURE IN PROGRESS.ASKED WHATS NEXT? EXPLAINED MORE THAN LIKELY WILL BE INTUBATED AND PUT ON VENT IF FEELS LIKE ITS NECESSARY TO ASSIST WITH BREATHING.STATES X2 DAD DOESN'T WANT HIS CHEST PUMPED ON.TUBE DOWN HIS THROAT OR PUT ON RESPIRATOR. IN ROUTE TO HOSPITAL. PROCESS TANK TENDER RIANNA RODRIGUEZ NOTIFIED OF FAMILIES ONCOMING ARRIVAL.2049)DR BHATIA HERE TALKED WITH FAMILY AND PRONOUNCED PATIENT.
--- NOTE | 2019-07-12 15:17 | MORECARE ---
CASE MANAGEMENT DISCHARGE SUMMARY PATIENT: PAOLA MCKEON UNIT: [id number] ADM DATE: 07/01/19 AGE: 74 : 44 SEX: M ROOM/BED: D.2216 AUTHOR: MARGARITA,DOC PHYSICIAN: REFERRING PHYSICIAN: REEMA AMAYA MD DATE OF SERVICE: 07/12/19 Discharge Plan Patient Name: PAOLA MCKEON Facility: [facility]:[place] : 1945 Planned Disposition: Home Anticipated Discharge Date: Discharge Date: 07/11/2019 Expected LOS: 0 Initial Reviewer: [email or web address] Initial Review Date: 07/01/2019 Generated: 07/12/19 4:17 pm Comments DCP- Discharge Planning Updated by [email or web address]: Negra Amanda on 07/11/19 3:[address] SPOKE WITH AND DAUGHTER IN LAW ABOUT CARE AND WISHES ASKED BY DR MARTINEZ THEY STATED THAT HE USES O2 ALL THE TIME @2L. HE IS NOT A CONFUSED PERSON AND IS INDEPENDENT WITH HIS CARE AT HOME. THIS IS NOT HIS NORMAL. I HAVE RECEIVED PERMISSION FROM ADMINISTRATION FOR THE SON AND TO COME SEE THE PATIENT. TO GET A BETTER IDEA OF PLAN OF CARE. CM TO FOLLOW AND ASSIST DCP- Discharge Planning Updated by [email or web address]: Joan Camacho on 07/05/19 6:[address] CM RECIEVED A CALL FROM DK DUMONT FROM [place] [phone]. CM GAVE VERBAL UPDATE ON PATIENT. DK STATED TO CALL IF PATIENT NEEDS ANYTHING. DCP- Discharge Planning Updated by [id number]: Joan Camacho on 07/02/19 8:[address] Patient Name: PAOLA MCKEON Admission Status: ER Accout number: [id number] Admission Date: 07-01-2019 : 1945 Admission Diagnosis: Attending: REEMA AMAYA Current LOS: 1 Anticipated DC Date: Planned Disposition: Primary Insurance: [employer] Discharge Planning Comments: CM met with patient at bedside after explaining CM role and obtaining verbal consent. Patient lives at home with his where he is independent with his care and plans to return there upon discharge. Patient feels this would be a safe discharge. CM discussed availability / needs of home health and medical equipment. Patient states that he has a walker, nebulizer and home 02. Patient denies any discharge needs at this time. CM asked patient if he wants to transfer to [place] if bed available. Patient stated that he would like to stay here and [place]. Patient states he will have his family drive him home upon discharge. CM will continue to follow and assist as needed with discharge planning / needs. Band Salvager: Joan Furr DCPIA - Discharge Planning Initial Assessment Updated by [email or web address]: Joan Camacho on 07/02/19 9:19 pm * Is the patient Alert and Oriented? Yes * How many steps to enter\exit or inside your home? * PCP Mei Cheung - walk-in clinic * Pharmacy [place] [facility] * Preadmission Environment Home with Family * ADLs Independent * Other Equipment WALKER, HOME AND PORTABLE 02, NEBULIZER * List name and contact numbers for known caregivers / representatives who currently or will assist patient after discharge: - [phone] DAI / MAYCO MCKEON -SON & dnl [phone], * Verbal permission to speak to the caregivers and representatives has been obtained from the patient. Yes * Community resources currently utilized None * Additional services required to return to the preadmission environment? No * Can the patient safely return to the preadmission environment? Yes * Has this patient been hospitalized within the prior 30 days at any hospital? No Last DP export: 07/11/19 3:37 p Patient Name: PAOLA MCKEON Page [id number] at 1517 All edits/amendments must be made on the electronic document DICTATION DATE: 07/12/197 MANAGER AIR: ANIKA 07/12/19 1517 RPT#: [id number] DC DATE:07/11/19 STATUS: DIS IN [facility] [address] [facility] [place] [address] END OF REPORT
== END 2019-07-11 19:15 | DRG 871 ==
LOC: D.ER 19:08 → D.ICU 19:38 → D.M2 19:38 → D.MS 19:38 → D.M2 07-03 15:13 → D.ICU 07-04 17:43 → D.MS 07-06 15:03
PROVIDERS: Family Medicine; ADMIT Internal Medicine Nephrology; ATTEND Internal Medicine Nephrology
PROC: 5A09457 Assistance with Respiratory Ventilation, 24-96 Consecutive Hours, Continuous Positive Airway Pressure (ICD-10-PCS; 2019-07-10)
PROC: 5A12012 Performance of Cardiac Output, Single, Manual (ICD-10-PCS; principal; 2019-07-11)
DX: A41.9 Sepsis, unspecified organism (principal); R65.21 Severe sepsis with septic shock; J96.21 Acute and chronic respiratory failure with hypoxia; J18.9 Pneumonia, unspecified organism; I50.23 Acute on chronic systolic (congestive) heart failure; K85.20 Alcohol induced acute pancreatitis without necrosis or infection; K85.90 Acute pancreatitis without necrosis or infection, unspecified; N39.0 Urinary tract infection, site not specified; N17.9 Acute kidney failure, unspecified; J43.9 Emphysema, unspecified; K52.9 Noninfective gastroenteritis and colitis, unspecified; E11.40 Type 2 diabetes mellitus with diabetic neuropathy, unspecified; E87.5 Hyperkalemia; R59.0 Localized enlarged lymph nodes; I25.10 Atherosclerotic heart disease of native coronary artery without angina pectoris; G31.2 Degeneration of nervous system due to alcohol; D50.9 Iron deficiency anemia, unspecified; K74.60 Unspecified cirrhosis of liver